=== PATIENT | female | born 1930 | race Caucasian/White ===

== ENCOUNTER 2017-08-11 10:01 | Emergency (ER) | payer MEDICARE, BC ==
[~2017-08-11] VITALS: Ht 165.1 cm; Wt 68.0 kg
--- OUTSIDE RECORDS SUMMARY | 2017-08-11 10:04 | XMS REPORT ---
Author Author [facility] Address Unknown Phone Unavailable Care Team Providers Care Hair Weaver Name Role Phone SARAHI MOORE Unavailable Unavailable Problems This patient has no known problems. Allergies, Adverse Reactions, Alerts This patient has no known allergies or adverse reactions. Medications This patient has no known medications. Results Test Description Test Time Test Comments Text Results Atomic Results Result Comments CT BRAIN WO [place] [address] Patient Name: LAUREN GRESHAM MR #: [id number] : 1930 Age/Sex: 86/F Req #: [id number] Adm Physician: Ordered by: SARAHI MOORE MD Report #: [id number] Location: ER Room/Bed: Procedure: [id number] CT/CT BRAIN WO Exam Date: 02/22/17 Exam Time: 2039 REPORT STATUS: Signed EXAMINATION: Head CT without contrast. HISTORY:Status post fall. COMPARISON:MRI brain from 04/21/2010. TECHNIQUE: Multidetector axial images were obtained from the foramen magnum to the vertex without contrast. The images were reconstructed using brain and bone algorithms. Thin section brain images were reformatted into coronal and sagittal planes. Intravenous contrast: None IMAGE QUALITY: Acceptable. FINDINGS: Skull/scalp: No abnormality. Parenchyma: Nonspecific few, scattered supratentorial white matter patchy hypodensity are likely related to small vessel ischemic changes. No acute hemorrhage, mass or acute major vascular territorial infarct. Arteries: Atherosclerotic calcification in bilateral carotid siphon. Dural sinuses: No abnormal density suggestive of thrombosis. Ventricles: Mild compensated dilatation due to volume loss. No hydrocephalus. Extra-axial spaces: Unchanged posterior fossa, retrocerebellar cystic lesion with regional mass effect represents an arachnoid cyst. Brain volume: Moderate generalized age-related cerebral volume loss. Craniocervical junction: No mass, Chiari malformation, or basilar invagination. Sella: No mass. Paranasal/mastoid sinuses: Imaged portions unremarkable. IMPRESSION: No acute intracranial abnormality. Chronic findings: 1. Mild supratentorial white matter microvascular ischemic changes. 2. Moderate generalized age-related cerebral volume loss. Signed by: Dr. Sofia Flores M.D. on 02/22/2017 9:16 PM Dictated By: SOFIA FLORES MD 15 Transcribed By: SARITHA on 02/22/172115 COPY TO: SARAHI MOORE MD WRIST COMPLETE RIGHT [place] [address] Patient Name: LAUREN GRESHAM MR #: [id number] : 1930 Age/Sex: 86/F Req #: [id number] Adm Physician: Ordered by: SARAHI MOORE MD Report #: [id number] Location: Room/Bed: Procedure: [id number] DX/WRIST COMPLETE RIGHT Exam Date: 02/22/17 Exam Time: 2039 REPORT STATUS: Signed WRIST COMPLETE RIGHT Comparison: None Clinical history: Status post fall with pain Findings: Transverse fracture of the radial metaphysis with possible intra- articular extension and dorsal angulation. Bone fragment/mineralization seen along ventral radial aspect. There is also widening of the scapholunate interval, 5 to 6 mm, with triangular appearance of the lunate. Severe triscaphe degenerative changes. Impression: Suboptimal positioning and portable views, in particularly the lateral. Recommend nonportable views when able. 1. Angulated, possibly intra-articular, fracture of the distal radial metaphysis. 2. Widening of the scapholunate interval. 3. Findings suggesting lunate/perilunate dislocation. Signed by: Dr Carmen Ferraro MD on 02/22/2017 9:27 PM Dictated By: CARMEN FERRARO MD 26 Transcribed By: SARITHA on 02/22 COPY TO: SARAHI MOORE MD
[2017-08-11 11:12] VITALS: BP 128/62
== END 2017-08-11 11:25 | disposition home or self-care (01) ==
LOC: ER 10:01
DX: Z76.0 Encounter for issue of repeat prescription (principal)
CPT/HCPCS: 99283

== ENCOUNTER 2017-10-25 11:01 | Emergency (ER) | payer MEDICARE, BC ==
[~2017-10-25] VITALS: Ht 165.1 cm; Wt 68.0 kg
--- OUTSIDE RECORDS SUMMARY | 2017-10-25 11:04 | XMS REPORT | Continuity of Care Document ---
Author Author [facility] Organization [facility] Address [address] [place] [address] Phone Unavailable Care Team Providers Care Certification Engineer Name Role Phone NONSTAFF PCP Unavailable Insurance Providers Guarantor Carmelita Myrick Address [address] [place] [address] Email [email or web address] [facility] Policy Number [id number] Subscriber's Name Carmelita Myrick Lisa Relationship 18 Self / Same As Patient Group Number [id number] Group Name [employer] Effective Date 14 Payer Medicare A & B Policy Number [id number] Subscriber's Name Carmelita Myrick Relationship 18 Self / Same As Patient Group Number [id number] Group Name RETIRED Effective Date 93 Advance Directives Directive Response Recorded Date/Time Does the patient have an advance directive? Yes 08/11/17 10:58am If yes, is advance directive on file with [facility]? No 08/25/07 7:54am If not on file with [facility] will patient provide a copy? Yes 08/11/17 10:58am Do you have a Directive to Physician? Yes 08/11/17 10:58am Do you have a Medical Power of Eap Specialist? Yes 08/11/17 10:58am Do you have an out of hospital Do Not Resuscitate Order? No 08/11/17 10:58am Do you have any special needs we should be aware of? No 08/11/17 10:58am Do you have a support person here with you today? Yes 08/11/17 10:58am Did patient receive Notice of Privacy Practices? Yes 08/11/17 10:58am Did patient receive patient rights and responsibilities? Yes 08/11/17 10:58am Problems No problem information available. Medications No medication information available. Social History Smoking Status Start Date Stop Date Never Smoker Hospital Discharge Instructions No hospital discharge instruction information available. Plan of Care Discharge Date 08/11/17 11:25am Disposition HOME, SELF-CARE Condition at Discharge Stable Instructions/Education Provided Medication Safety Prescriptions See Medication Section Referrals Dane Montemayor MD Order Date: Call for an appointment Additional Instructions/Education DC Instructions: Call for follow up appointment to see your Eye doctor as planned. Continue to take your eye medication as prescribed. YOu have more than half of the medication remaining in your bottle. As discussed at the bedside, drink fluids, rest and return to the ER for any fever, shortness of breath, chest pain, trouble handling your oral secreations or any new concerns. Functional Status No functional status information available. Allergies, Adverse Reactions, Alerts Allergen Type Severity Reaction Status Last Updated Penicillin Allergy Mild RASH,WHELPS Active 10/18/09 Sulfa (Sulfonamide Antibiotics) Allergy Mild HEADACHE Active 10/18/09 Propoxyphene Allergy Mild INSOMNIA Active 10/18/09 Streptomycin Allergy Mild RASH,WHELPS Active 10/18/09 Immunizations No immunization information available. Vital Signs Acute Vital Signs Vital Response Date/Time Pulse Pulse Rate (adult) 65 bpm (60 - 90) 08/11/2017 11:12am Respiratory Rate 17 bpm (12 - 24) 08/11/2017 11:12am Blood Pressure 128/62 mm Hg 08/11/2017 11:12am Height 5 ft 5 in 08/11/2017 10:05am Weight 150 lb 08/11/2017 10:05am Body Mass Index 25.0 kg/m^2 08/11/2017 10:05am Results No relevant diagnostic test, laboratory data and/or discharge summary information available. Procedures Procedure Status Date Provider(s) APPLY FOREARM SPLINT Completed 02/22/17 SARAHI MOORE MD Computed tomography of brain without radiopaque contrast Active 02/22/17 SARAHI MOORE MD Encounters Encounter Location Arrival/Admit Date Discharge/Depart Date Attending Provider Departed Emergency Room [facility] 08/11/17 10:01am 08/11 11:25am MARGARET GARVIN MD Departed Emergency Room [facility] 02/22/17 8:22pm 10:32pm SARAHI MOORE MD
[2017-10-25] MEDS ORDERED: ALBUTEROL/IPRATROPIUM 3 ML NEB NEB ONE (11:15)
[2017-10-25 12:04] LABS: BASOPHILS # (AUTO) 0.1 (0.0-0.1); BASOPHILS % 1.2 % (0.0-1.0); EOSINOPHILS # (AUTO) 0.8 (0.0-0.4); EOSINOPHILS % 7.2 % (0.0-6.0); HEMATOCRIT 32.3 % (34.2-44.1); HEMOGLOBIN 9.9 g/dL (12.0-16.0); LYMPHOCYTES # (AUTO) 1.7 (1.0-3.2); LYMPHOCYTES % 16.3 % (18.0-39.1); MEAN CORPUSCULAR HGB CONC 30.7 g/dL (31-35); MEAN CORPUSCULAR VOLUME 91.5 fL (81-99); MONOCYTES # (AUTO) 0.8 (0.2-0.8); MONOCYTES % 7.8 % (4.4-11.3); NEUTROPHILS # (AUTO) 7.1 (2.1-6.9); NEUTROPHILS % 66.9 % (38.7-80.0); PLATELET COUNT 314 x10e3/uL (140-360); RED BLOOD COUNT 3.53 x10e6/uL (3.6-5.1); RED CELL DISTRIBUTION WIDTH 14.7 % (11.7-14.4)
[2017-10-25 12:17] LABS: INR 1.02; PARTIAL THROMBOPLASTIN TIME 31.5 seconds (23.8-35.5); PROTHROMBIN TIME 12.6 seconds (11.9-14.5)
--- NOTE | 2017-10-25 12:25 | Diagnostic Imaging Report ---
PROCEDURE: A single AP view of the chest. COMPARISON: 05/09/08 INDICATIONS: COUGH, SHORTNESS OF BREATH FINDINGS: Lines/tubes: None. Lungs: Unchanged elevated right hemidiaphragm. Central peribronchovascular thickening/cuffing and vascular congestion. Bibasilar subsegmental atelectasis. Pleura: There is no pleural effusion or pneumothorax. Heart and mediastinum: The heart and the mediastinum are unremarkable. Aorta is calcified and tortuous. Bones: No acute bony abnormality. IMPRESSION: Unchanged elevated right hemidiaphragm. Central peribronchovascular thickening/cuffing and vascular congestion. Underlying infiltrate in the perihilar regions cannot be excluded. Bibasilar subsegmental atelectasis. Dictated by: Nilo Salazar M.D. on 10/25/2017 at 12:27 Electronically approved by: Nlio Salazar M.D. on 10/25/2017 at 12:27
[2017-10-25 12:37] LABS: ALANINE AMINOTRANSFERASE 9 IU/L (0-55); ALBUMIN 3.2 g/dL (3.5-5.0); ALKALINE PHOSPHATASE 105 IU/L (40-150); ANION GAP 15.1 mmol/L (8-16); BLOOD UREA NITROGEN 26 mg/dL (7-26); BUN/CREATININE RATIO 18 (6-25); CARBON DIOXIDE 27 mmol/L (22-29); CHLORIDE 100 mmol/L (98-107); CREATINE KINASE 59 IU/L (29-168); CREATININE, SERUM 1.47 mg/dL (0.57-1.11); EST GLOMERULAR FILTRATION RATE 33 ML/MIN (60-); GLUCOSE 82 mg/dL (74-118); POTASSIUM 5.1 mmol/L (3.5-5.1); SODIUM 137 mmol/L (136-145)
[2017-10-25] MEDS ORDERED: METHYLPREDNISOLONE SOD SUCC 125 MG/2ML VIAL IV ONE (13:15)
[2017-10-25 13:42] VITALS: BP 154/71
== END 2017-10-25 13:35 | disposition home or self-care (01) ==
LOC: ER 11:01
DX: R05 Cough (principal); R06.00 Dyspnea, unspecified; I10 Essential (primary) hypertension; Z99.81 Dependence on supplemental oxygen
CPT/HCPCS: 36415; 71045; 80053; 82550; 82553; 83880; 84484; 85025; 85610; 85730; 87040; 93005; 99284; J2930

== ENCOUNTER 2018-01-15 21:18 | Inpatient (IN) | payer MEDICARE, BC ==
[~2018-01-15] VITALS: Ht 165.1 cm; Wt 68.0 kg
[2018-01-15] MEDS: ALBUTEROL SULF 0.083% NEB SOLN 3 ML NEB NEB SCH (00:10)
[2018-01-15] MEDS ORDERED: IPRATROPIUM BROMIDE 0.02% 2.5 ML NEB NEB STA (21:23)
[2018-01-15] MEDS ORDERED: LEVALBUTEROL HCL SOLN NEBU 0.63 MG/3 ML NEB INH STA (21:23)
[2018-01-15 21:41] LABS: BASOPHILS # (AUTO) 0.1 (0.0-0.1); EOSINOPHILS # (AUTO) 0.5 (0.0-0.4); EOSINOPHILS % 5.5 % (0.0-6.0); HEMATOCRIT 31.3 % (34.2-44.1); HEMOGLOBIN 9.4 g/dL (12.0-16.0); LYMPHOCYTES # (AUTO) 2.1 (1.0-3.2); LYMPHOCYTES % 25.5 % (18.0-39.1); MEAN CORPUSCULAR HEMOGLOBIN 28.3 pg (28-32); MEAN CORPUSCULAR VOLUME 94.3 fL (81-99); MONOCYTES # (AUTO) 0.8 (0.2-0.8); MONOCYTES % 9.6 % (4.4-11.3); NEUTROPHILS # (AUTO) 4.8 (2.1-6.9); PLATELET COUNT 330 x10e3/uL (140-360); RED BLOOD COUNT 3.32 x10e6/uL (3.6-5.1); RED CELL DISTRIBUTION WIDTH 14.9 % (11.7-14.4)
[2018-01-15 21:50] LABS: INR 0.97; PROTHROMBIN TIME 12.1 seconds (11.9-14.5)
[2018-01-15 21:51] LABS: PARTIAL THROMBOPLASTIN TIME 28.6 seconds (23.8-35.5)
[2018-01-15 21:52] LABS: CLARITY,URINE CLEAR (CLEAR); COLOR,URINE YELLOW (YELLOW); LEUKOCYTE ESTERASE ,URINE TRACE (NEGATIVE); NITRITE,URINE NEGATIVE (NEGATIVE)
[2018-01-15 21:53] LABS: BILIRUBIN,URINE NEGATIVE (NEGATIVE); KETONES,URINE NEGATIVE (NEGATIVE); PROTEIN,URINE DIPSTICK 1+ (NEGATIVE); URINE UROBILINOGEN 0.2 mg/dL (0.2 - 1)
[2018-01-15] MEDS ORDERED: DIGOXIN125 MCG PO (21:54)
[2018-01-15] MEDS ORDERED: TOPROL XL50 MG PO (21:55)
[2018-01-15] MEDS ORDERED: AMIODARONE HCL200 MG PO (21:55)
--- NOTE | 2018-01-15 21:55 | Diagnostic Imaging Report ---
EXAM: CHEST SINGLE (PORTABLE), AP 1 view INDICATION: Shortness of breath COMPARISON: AP chest 10/25/2017 FINDINGS: LINES/TUBES: None LUNGS: Bibasilar atelectasis PLEURA: No effusions or pneumothorax. HEART AND MEDIASTINUM: Normal size and contour. BONES AND SOFT TISSUES: No acute findings. IMPRESSION: Bibasilar atelectasis. This is increased on the left since prior exam and could represent superimposed pneumonia. Signed by: Dr. Yuliya Dumont M.D. on 01/15/2018 9:52 PM
[2018-01-15 21:56] LABS: ALBUMIN/GLOBULIN RATIO 0.8 (0.8-2.0); ANION GAP 13.9 mmol/L (8-16); CALCIUM 8.9 mg/dL (8.4-10.2); CREATININE, SERUM 2.01 mg/dL (0.57-1.11); MAGNESIUM 1.9 MG/DL (1.3-2.1); POTASSIUM 4.9 mmol/L (3.5-5.1)
[2018-01-15] MEDS ORDERED: VENLAFAXINE HCL75 MG PO (21:56)
[2018-01-15] MEDS ORDERED: GABAPENTIN300 MG PO (21:56)
[2018-01-15] MEDS ORDERED: OMEPRAZOLE40 MG PO (21:57)
[2018-01-15] MEDS ORDERED: SYMBICORT 16010.2 GM INH (22:01)
[2018-01-15] MEDS ORDERED: HYDROCODON-ACE1 EA11 PO (22:01)
[2018-01-15] MEDS ORDERED: PROAIR HFA INH8.5 GM INH (22:01)
[2018-01-15 22:06] LABS: B-TYPE NATRIURETIC PEPTIDE2 92.5 pg/mL (0-100); BACTERIA,URINE MANY /HPF; EPITHELIAL CELLS,URINE FEW /LPF; MUCUS,URINE MANY (RARE); RBC,URINE >50 /HPF (0-5)
[2018-01-15 22:16] LABS: CREATINE KINASE MB 2.5 ng/mL (0-5.0); THYROID STIMULATING HORMONE 6.642 uIU/mL (0.350-4.940)
[2018-01-15] MEDS: CEFTRIAXONE SOD 1 GM VIAL IV SCH (22:29)
[2018-01-15] MEDS: AZITHROMYCIN 500MG/NS 250 ML 250 ML IV SCH (22:29)
[2018-01-15] MEDS ORDERED: METHYLPREDNISOLONE SOD SUCC 125 MG/2ML VIAL IV STA (22:57)
[2018-01-15] MEDS ORDERED: METHYLPREDNISOLONE SOD SUCC 125 MG/2ML VIAL ONE (22:59)
[2018-01-15] MEDS ORDERED: SODIUM CHLORIDE 0.9% 1000ML 1,000 ML IV ONE (23:15)
[2018-01-15 23:36] LABS: ABG HCO3 27 mmol/L (23-28); ABG PCO2 54 mmHg (41-51); ABG PO2 85 mmHg (80-105)
[2018-01-16] VITALS (10 sets, daily range): BP systolic 137–180; BP diastolic 71–107
--- NOTE | 2018-01-16 00:03 | Diagnostic Imaging Report ---
EXAM: CT CHEST WO INDICATION: Shortness of breath, left lateral rib pain COMPARISON: Portal chest x-ray January 15, 2018 TECHNIQUE: Multidetector CT scanning of the chest was performed. Coronal and sagittal multiplanar reformations were obtained. Routine protocol performed. IV Contrast: None CTDIvol has been reviewed. It is below the limits set by the Radiation Protocol Committee (RPC). FINDINGS: LUNGS AND AIRWAYS: The trachea and major bronchi are patent. Mild traction bronchiectasis, likely age-related. Mild bibasilar subsegmental atelectasis. No consolidations or edema. PLEURA: No effusions or pneumothorax. Mild dependent posterior pleural thickening. HEART, MEDIASTINUM, VESSELS: The heart is within normal size limits. Marked calcifications of the thoracic aorta without evidence of an aneurysm. Goiter with substernal left thyroid lobe. UPPER ABDOMEN: No acute findings. Bilateral renal cysts. MUSCULOSKELETAL: * Acute left posterior 10th and 11th rib fractures. * Subacute appearing mild compression fracture of the T12 superior endplate with approximately 20% loss of vertebral body height. Nonspecific right posterior lateral breast nodules measuring approximately 1 cm each. Healing nondisplaced left lateral ninth Rib fracture. There are 3 punctate foci of air around the proximal right clavicle of uncertain clinical significance, may be intravascular associated with a line placement. Partially visualized lumbar spine surgical hardware. IMPRESSION: * Acute left posterior 10th and 11th rib fractures. * Subacute appearing mild compression fracture of the T12 superior endplate with approximately 20% loss of vertebral body height. Bibasilar subsegmental atelectasis. No pneumothorax. Signed by: Dr. Yuliya Dumont M.D. on 01/15/2018 11:59 PM
[2018-01-16] MEDS: IPRATROPIUM BROMIDE 0.02% 2.5 ML NEB NEB SCH ×2 (00:10→07:06)
[2018-01-16] MEDS ORDERED: IPRATROPIUM BROMIDE 0.02% 2.5 ML NEB ONE (00:19)
[2018-01-16] MEDS ORDERED: ALBUTEROL SULF 0.083% NEB SOLN 3 ML NEB ONE (00:19)
[2018-01-16 02:52] LABS: ABG HCO3 30 mmol/L (23-28); ABG PCO2 49 mmHg (41-51); ABG PH 7.38 (7.31-7.41); ABG PO2 83 mmHg (80-105)
[2018-01-16] MEDS: ALBUTEROL SULF 0.083% NEB SOLN 3 ML NEB NEB SCH ×2 (04:20→07:06)
[2018-01-16 05:20] LABS: BASOPHILS # (AUTO) 0.1 (0.0-0.1); BASOPHILS % 0.7 % (0.0-1.0); EOSINOPHILS % 0.3 % (0.0-6.0); HEMATOCRIT 28.1 % (34.2-44.1); HEMOGLOBIN 8.6 g/dL (12.0-16.0); LYMPHOCYTES # (AUTO) 0.6 (1.0-3.2); LYMPHOCYTES % 5.9 % (18.0-39.1); MEAN CORPUSCULAR HEMOGLOBIN 28.4 pg (28-32); MEAN CORPUSCULAR HGB CONC 30.6 g/dL (31-35); MEAN CORPUSCULAR VOLUME 92.7 fL (81-99); MONOCYTES # (AUTO) 0.2 (0.2-0.8); MONOCYTES % 1.8 % (4.4-11.3); NEUTROPHILS # (AUTO) 9.1 (2.1-6.9); NEUTROPHILS % 90.3 % (38.7-80.0); PLATELET COUNT 289 x10e3/uL (140-360); RED BLOOD COUNT 3.03 x10e6/uL (3.6-5.1); RED CELL DISTRIBUTION WIDTH 14.8 % (11.7-14.4)
[2018-01-16 05:45] LABS: ALBUMIN 2.6 g/dL (3.5-5.0); ALBUMIN/GLOBULIN RATIO 0.8 (0.8-2.0); ANION GAP 15.1 mmol/L (8-16); CALCIUM 8.5 mg/dL (8.4-10.2); CREATININE, SERUM 1.69 mg/dL (0.57-1.11); POTASSIUM 5.1 mmol/L (3.5-5.1)
--- NOTE | 2018-01-16 06:42 | Diagnostic Imaging Report ---
EXAM: CHEST SINGLE (PORTABLE), AP 1 view INDICATION: Pneumonia COMPARISON: AP view of the chest January 15, 2018 FINDINGS: LINES/TUBES: None LUNGS: Bibasilar atelectasis. PLEURA: No effusions or pneumothorax. HEART AND MEDIASTINUM: Normal size and contour. BONES AND SOFT TISSUES: Nondisplaced left posterior 10th and 11th rib fractures not seen by x-ray. IMPRESSION: Bibasilar atelectasis. Signed by: Dr. Yuliya Dumont M.D. on 01/16/2018 6:39 AM
[2018-01-16] MEDS: AZITHROMYCIN 500MG/NS 250 ML 250 ML IV SCH (09:11)
[2018-01-16] MEDS ORDERED: DEXTROSE 5%/0.9% SOD CHL 1,000 ML IV SCH (09:45)
[2018-01-16] MEDS ORDERED: ONDANSETRON HCL INJ 2 MG/ML VIAL IV PRN (09:45)
[2018-01-16] MEDS: CEFTRIAXONE SOD 1 GM VIAL IV SCH ×2 (10:25→21:15)
[2018-01-16] MEDS: ALBUTEROL/IPRATROPIUM 3 ML NEB NEB SCH ×2 (11:16→15:36)
--- NOTE | 2018-01-16 11:56 | Consultation ---
DATE OF CONSULTATION: January 16, 2018 PULMONARY CONSULTATION Patient of Dr. Luther, Dr. Stratton. A charming but unfortunate 87-year-old woman with a history of tremors, history of chronic hypoxia, multiple CVAs, multiple falls, apparently fell at home tripping over a love seat. She said she was trembling and lost her balance. She was using her walker. Family thinks she may have tripped over an oxygen cord. She has had 2 CVAs, most recently in May of last year. She has a history of gastroesophageal reflux, history of peripheral neuropathy, hypertension, intermittent atrial fibrillation, coronary disease. Smoked less than a pack a day for 2 years. Quit over 40 years ago according to the patient. She has had back surgery, bladder surgery, hysterectomy, hernia surgery, , T and A, and appendectomy. ALLERGIES: DARVON, SULFA, PENICILLIN, STREPTOMYCIN. MEDICATIONS: Have included amiodarone, Zocor, Neurontin, losartan, hydrochlorothiazide, Prilosec, and B12. She has been offered a Watchman procedure, but apparently refused. According to nursing, she is a limited chemical code status. PHYSICAL EXAMINATION GENERAL: This is a well-developed white female looking her stated age in no acute distress. VITALS: Temperature 98, pulse 86 and regular, blood pressure 151/80, respirations 18. HEENT: Head is normocephalic and atraumatic. NECK: Trachea midline. LUNGS: Bilateral rhonchi. HEART: Regular rhythm. ABDOMEN: Nontender. EXTREMITIES: Nonedematous. CT reveals 3 rib fractures, 2 acute on the left and pain on the left. Mild compression fracture of T12. There is atelectasis as well as pneumonia per Dr. Mullen. PLAN: Mobilization. Prophylactic Lovenox and incentive spirometry. Chest physiotherapy, bronchodilators. Currently, on empiric antibiotic therapy. Respect DNR status. Continue bronchodilators. The patient may require more supervision at home if possible. She has qualified for supplemental oxygen. Chronicity of the elevated diaphragm is unknown. Request old records from [facility]. Thank you for this kind referral. Job#: [id number] RENEA
[2018-01-16] MEDS: GUAIFENESIN 600 MG TAB PO SCH ×3 (12:29→23:15)
[2018-01-16] MEDS ORDERED: METHYLPREDNISOLONE SOD SUCC 40 MG/ML VIAL IV SCH (14:00)
[2018-01-16] MEDS: METHYLPREDNISOLONE SOD SUCC 40 MG/ML VIAL IV SCH ×2 (14:20→21:00)
[2018-01-16] MEDS: CLONIDINE HCL 0.1 MG TAB PO PRN (16:05)
[2018-01-16] MEDS: HYDRALAZINE HCL 20 MG/ML VIAL IV PRN (16:05)
[2018-01-16] MEDS: FAMOTIDINE 20 MG TAB PO SCH (16:40)
[2018-01-16] MEDS: DOCUSATE SODIUM 100 MG CAP PO SCH (17:07)
[2018-01-16] MEDS: GABAPENTIN 300 MG CAP PO SCH (17:07)
[2018-01-16] MEDS: POLYETHYLENE GLYCOL 3350 17 GM PACK PO SCH (17:07)
[2018-01-16] MEDS: ENOXAPARIN SOD INJ 40 MG/0.4 ML SYR SC SCH (17:07)
[2018-01-16] MEDS: AMIODARONE HCL 200 MG TAB PO SCH (19:09)
[2018-01-16] MEDS: DIGOXIN 0.125 MG TAB PO SCH (19:10)
[2018-01-16] MEDS: METOPROLOL SUCCINATE 50 MG TAB XL PO SCH (19:10)
[2018-01-16] MEDS: LEVALBUTEROL HCL SOLN NEBU 0.63 MG/3 ML NEB INH SCH ×2 (19:20→22:40)
[2018-01-16] MEDS: ACETAMINOPHEN 325 MG TAB PO PRN (21:15)
[2018-01-17] VITALS (8 sets, daily range): BP systolic 147–169; BP diastolic 78–99
[2018-01-17] MEDS: ACETAMINOPHEN 325 MG TAB PO PRN ×2 (03:03→15:33)
[2018-01-17] MEDS: LEVALBUTEROL HCL SOLN NEBU 0.63 MG/3 ML NEB INH SCH ×6 (03:20→22:55)
[2018-01-17] MEDS: HYDRALAZINE HCL 20 MG/ML VIAL IV PRN (04:23)
[2018-01-17 04:51] LABS: BASOPHILS % 0.1 % (0.0-1.0); HEMATOCRIT 25.8 % (34.2-44.1); LYMPHOCYTES % 8.6 % (18.0-39.1); MEAN CORPUSCULAR HEMOGLOBIN 28.3 pg (28-32); MEAN CORPUSCULAR VOLUME 91.2 fL (81-99); MONOCYTES # (AUTO) 0.5 (0.2-0.8); MONOCYTES % 4.2 % (4.4-11.3); NEUTROPHILS # (AUTO) 9.6 (2.1-6.9); NEUTROPHILS % 86.6 % (38.7-80.0); PLATELET COUNT 282 x10e3/uL (140-360); RED BLOOD COUNT 2.83 x10e6/uL (3.6-5.1)
[2018-01-17 05:27] LABS: ANION GAP 13.8 mmol/L (8-16); CALCIUM 8.8 mg/dL (8.4-10.2); CREATININE, SERUM 1.44 mg/dL (0.57-1.11); MAGNESIUM 1.7 MG/DL (1.3-2.1); POTASSIUM 4.8 mmol/L (3.5-5.1)
[2018-01-17 05:32] LABS: FERRITIN 151.54 ng/mL (4.63-204.00)
[2018-01-17] MEDS: METHYLPREDNISOLONE SOD SUCC 40 MG/ML VIAL IV SCH ×2 (06:00→17:03)
[2018-01-17] MEDS: LEVOTHYROXINE SODIUM 50 MCG TAB PO SCH (06:00)
[2018-01-17] MEDS: GUAIFENESIN 600 MG TAB PO SCH ×3 (06:00→17:33)
[2018-01-17 06:15] LABS: FOLATE 10.7 ng/mL (7.0-15.4)
--- NOTE | 2018-01-17 06:50 | Diagnostic Imaging Report ---
EXAM: CHEST SINGLE (PORTABLE), AP 1 view INDICATION: Atelectasis COMPARISON: AP view of the chest January 16, 2018 FINDINGS: LINES/TUBES: None LUNGS: Stable bibasilar atelectasis. PLEURA: No effusions or pneumothorax. HEART AND MEDIASTINUM: Stable appearance. BONES AND SOFT TISSUES: No acute findings. IMPRESSION: No interval change. Signed by: Dr. Yuliya Dumont M.D. on 01/17/2018 6:47 AM
[2018-01-17] MEDS ORDERED: FUROSEMIDE INJ 10 MG/ML 2 ML VIAL IV NR (07:30)
[2018-01-17] MEDS ORDERED: BISACODYL 5 MG TAB EC PO NR (07:45)
[2018-01-17] MEDS: AZITHROMYCIN 500MG/NS 250 ML 250 ML IV SCH (08:00)
[2018-01-17] MEDS: AMIODARONE HCL 200 MG TAB PO SCH (08:24)
[2018-01-17] MEDS: DOCUSATE SODIUM 100 MG CAP PO SCH ×2 (08:24→15:42)
[2018-01-17] MEDS: FAMOTIDINE 20 MG TAB PO SCH ×2 (08:24→16:01)
[2018-01-17] MEDS: VENLAFAXINE HCL 75 MG TAB PO SCH (08:24)
[2018-01-17] MEDS: PANTOPRAZOLE SOD 40 MG TABEC PO SCH (08:24)
[2018-01-17] MEDS: AMLODIPINE BESYLATE 10 MG TAB PO SCH (08:25)
[2018-01-17] MEDS: GABAPENTIN 300 MG CAP PO SCH ×2 (08:25→15:33)
[2018-01-17] MEDS: POLYETHYLENE GLYCOL 3350 17 GM PACK PO SCH ×2 (08:25→15:42)
[2018-01-17] MEDS: DIGOXIN 0.125 MG TAB PO SCH (08:25)
[2018-01-17] MEDS: METOPROLOL SUCCINATE 50 MG TAB XL PO SCH (08:26)
[2018-01-17] MEDS ORDERED: DIGOXIN 0.125 MG TAB PO SCH (09:00)
[2018-01-17] MEDS ORDERED: METOPROLOL SUCCINATE 50 MG TAB XL PO SCH (09:00)
[2018-01-17] MEDS ORDERED: AMIODARONE HCL 200 MG TAB PO SCH (09:00)
[2018-01-17] MEDS: CEFTRIAXONE SOD 1 GM VIAL IV SCH ×2 (09:35→22:15)
[2018-01-17] MEDS: IPRATROPIUM BROMIDE 0.02% 2.5 ML NEB NEB SCH ×4 (11:50→22:55)
[2018-01-17] MEDS: ENOXAPARIN SOD INJ 40 MG/0.4 ML SYR SC SCH (16:01)
[2018-01-17] MEDS: HYDROCODONE/APAP 5MG-325MG TAB PO PRN (16:02)
[2018-01-17] MEDS: MELATONIN 3 MG TAB PO PRN (23:30)
[2018-01-18] VITALS (7 sets, daily range): BP systolic 115–189; BP diastolic 75–97
[2018-01-18] MEDS ORDERED: ALPRAZOLAM 0.25 MG TAB PO PRN (00:30)
[2018-01-18] MEDS: LEVALBUTEROL HCL SOLN NEBU 0.63 MG/3 ML NEB INH SCH ×6 (02:57→23:20)
[2018-01-18] MEDS: IPRATROPIUM BROMIDE 0.02% 2.5 ML NEB NEB SCH ×6 (02:57→23:20)
[2018-01-18 05:20] LABS: BASOPHILS % 0.2 % (0.0-1.0); EOSINOPHILS % 0.1 % (0.0-6.0); LYMPHOCYTES # (AUTO) 1.3 (1.0-3.2); LYMPHOCYTES % 15.3 % (18.0-39.1); MEAN CORPUSCULAR HEMOGLOBIN 28.2 pg (28-32); MEAN CORPUSCULAR VOLUME 90.9 fL (81-99); MONOCYTES # (AUTO) 0.7 (0.2-0.8); MONOCYTES % 7.8 % (4.4-11.3); NEUTROPHILS # (AUTO) 6.5 (2.1-6.9); NEUTROPHILS % 75.9 % (38.7-80.0); PLATELET COUNT 322 x10e3/uL (140-360); RED BLOOD COUNT 3.19 x10e6/uL (3.6-5.1); RED CELL DISTRIBUTION WIDTH 14.8 % (11.7-14.4)
[2018-01-18] MEDS: GUAIFENESIN 600 MG TAB PO SCH ×4 (05:33→17:01)
[2018-01-18] MEDS: LEVOTHYROXINE SODIUM 50 MCG TAB PO SCH (05:33)
[2018-01-18 05:50] LABS: ANION GAP 13.4 mmol/L (8-16); CALCIUM 8.8 mg/dL (8.4-10.2); CREATININE, SERUM 1.77 mg/dL (0.57-1.11); MAGNESIUM 1.7 MG/DL (1.3-2.1); POTASSIUM 4.4 mmol/L (3.5-5.1)
[2018-01-18] MEDS: METHYLPREDNISOLONE SOD SUCC 40 MG/ML VIAL IV SCH ×2 (06:00→17:01)
[2018-01-18] MEDS: FAMOTIDINE 20 MG TAB PO SCH ×2 (08:30→17:00)
[2018-01-18] MEDS: PANTOPRAZOLE SOD 40 MG TABEC PO SCH (08:30)
[2018-01-18] MEDS: VENLAFAXINE HCL 75 MG TAB PO SCH (08:50)
[2018-01-18] MEDS: AMIODARONE HCL 200 MG TAB PO SCH (08:50)
[2018-01-18] MEDS: DOCUSATE SODIUM 100 MG CAP PO SCH ×2 (08:50→17:00)
[2018-01-18] MEDS: AZITHROMYCIN 250 MG TAB PO SCH (08:51)
[2018-01-18] MEDS: DIGOXIN 0.125 MG TAB PO SCH (08:51)
[2018-01-18] MEDS: GABAPENTIN 300 MG CAP PO SCH ×2 (08:51→17:00)
[2018-01-18] MEDS: METOPROLOL SUCCINATE 50 MG TAB XL PO SCH (08:51)
[2018-01-18] MEDS: POLYETHYLENE GLYCOL 3350 17 GM PACK PO SCH ×2 (08:51→17:00)
[2018-01-18] MEDS: AMLODIPINE BESYLATE 10 MG TAB PO SCH (08:51)
[2018-01-18] MEDS ORDERED: MINERAL OIL 132 ML BTL PR NR (09:45)
[2018-01-18] MEDS: CEFTRIAXONE SOD 1 GM VIAL IV SCH ×2 (10:00→22:08)
[2018-01-18] MEDS: HYDROCODONE/APAP 5MG-325MG TAB PO PRN ×2 (10:30→18:37)
[2018-01-18] MEDS ORDERED: CITRATE OF MAGNESIA 300ML BOTTLE PO NR (16:00)
[2018-01-18] MEDS: ENOXAPARIN SOD INJ 40 MG/0.4 ML SYR SC SCH (17:00)
[2018-01-18] MEDS: MELATONIN 3 MG TAB PO PRN (22:09)
[2018-01-19] VITALS (8 sets, daily range): BP systolic 139–172; BP diastolic 72–94
[2018-01-19] MEDS: IPRATROPIUM BROMIDE 0.02% 2.5 ML NEB NEB SCH ×6 (02:50→23:25)
[2018-01-19] MEDS: LEVALBUTEROL HCL SOLN NEBU 0.63 MG/3 ML NEB INH SCH ×6 (02:50→23:25)
[2018-01-19 05:11] LABS: BASOPHILS % 0.2 % (0.0-1.0); HEMATOCRIT 30.4 % (34.2-44.1); HEMOGLOBIN 9.3 g/dL (12.0-16.0); LYMPHOCYTES # (AUTO) 1.1 (1.0-3.2); MEAN CORPUSCULAR HEMOGLOBIN 28.4 pg (28-32); MEAN CORPUSCULAR HGB CONC 30.6 g/dL (31-35); MONOCYTES # (AUTO) 0.3 (0.2-0.8); MONOCYTES % 3.9 % (4.4-11.3); NEUTROPHILS % 82.3 % (38.7-80.0); PLATELET COUNT 320 x10e3/uL (140-360); RED BLOOD COUNT 3.27 x10e6/uL (3.6-5.1); RED CELL DISTRIBUTION WIDTH 14.8 % (11.7-14.4)
[2018-01-19 05:36] LABS: CALCIUM 9.1 mg/dL (8.4-10.2); CREATININE, SERUM 1.61 mg/dL (0.57-1.11)
[2018-01-19] MEDS: LEVOTHYROXINE SODIUM 50 MCG TAB PO SCH (06:00)
[2018-01-19] MEDS: GUAIFENESIN 600 MG TAB PO SCH ×5 (06:00→23:07)
[2018-01-19] MEDS: METHYLPREDNISOLONE SOD SUCC 40 MG/ML VIAL IV SCH ×2 (06:02→17:00)
[2018-01-19] MEDS: PANTOPRAZOLE SOD 40 MG TABEC PO SCH (08:30)
[2018-01-19] MEDS: FAMOTIDINE 20 MG TAB PO SCH ×2 (08:30→17:00)
[2018-01-19] MEDS: DOCUSATE SODIUM 100 MG CAP PO SCH (08:40)
[2018-01-19] MEDS: AMIODARONE HCL 200 MG TAB PO SCH (08:40)
[2018-01-19] MEDS: VENLAFAXINE HCL 75 MG TAB PO SCH (08:40)
[2018-01-19] MEDS: AZITHROMYCIN 250 MG TAB PO SCH (08:41)
[2018-01-19] MEDS: METOPROLOL SUCCINATE 50 MG TAB XL PO SCH (08:41)
[2018-01-19] MEDS: GABAPENTIN 300 MG CAP PO SCH ×2 (08:41→17:00)
[2018-01-19] MEDS: AMLODIPINE BESYLATE 10 MG TAB PO SCH (08:41)
[2018-01-19] MEDS: DIGOXIN 0.125 MG TAB PO SCH (08:41)
[2018-01-19] MEDS: POLYETHYLENE GLYCOL 3350 17 GM PACK PO SCH (09:00)
[2018-01-19] MEDS: CEFTRIAXONE SOD 1 GM VIAL IV SCH (09:38)
[2018-01-19] MEDS ORDERED: POLYETHYLENE GLYCOL 3350 17 GM PACK PO PRN (11:00)
[2018-01-19] MEDS ORDERED: DOCUSATE SODIUM 100 MG CAP PO PRN (11:00)
[2018-01-19] MEDS: HYDROCODONE/APAP 5MG-325MG TAB PO PRN (11:53)
[2018-01-19] MEDS ORDERED: CEFEPIME HCL 1 GM VIAL IV SCH (15:45)
--- NOTE | 2018-01-19 16:25 | Consultation ---
DATE OF CONSULTATION: January 19, 2018 REASON FOR CONSULTATION: Pneumonia. HISTORY OF PRESENT ILLNESS: This is an 87-year-old white female with history of tremors, chronic hypoxemia, multiple CVA and multiple falls. She fell at home over her feet and apparently had injury to the left side of her chest. The patient started to have pain. The patient came here because she was having coughing and not feeling well. The patient was diagnosed with pneumonia and started on antibiotic, Rocephin and Azithromycin. The patient continued to have coughing at the present time. Infectious disease was consulted. She underwent a CAT scan which showed 3 ribs fractured, 2 acute on the left. The patient also had compression fracture of T12. There is atelectasis as well as possibility of infiltrates. When I saw the patient, she is complaining of coughing still and not feeling any better. The patient continued to have cough, which is nonproductive and not feeling well. Her urine did grow E. coli of interest. I reviewed all of her laboratory data. Discussed the case with the patient and discussed the case at length with Dr. Ray and the primary care. PHYSICAL EXAMINATION: GENERAL: Alert, and does not seem to be in any acute distress. VITAL SIGNS: Stable, currently afebrile. HEENT: Not icteric. Normocephalic. NECK: Supple. CHEST: A few rhonchi. HEART: S1 and S2, no murmur. ABDOMEN: Soft. Bowel sounds present. No tenderness. EXTREMITIES: No edema. IMPRESSION: Persistent cough. It think she just has weak cough because of the fracture drips, not certain if she has pneumonia. The patient certainly could develop pneumonia in the future because she has a weak cough. RECOMMENDATIONS: I would suggest to change her antibiotic to cefepime 1 gram q.24 h. to finish 14 days for the UTI. She will probably benefit from PT and OT and nutritional support. She also has a little bit of failure, fluid overload. I do not think she has pneumonia. I think mainly she just has a weak cough and fractured ribs for quite some time to heal, but I do encourage her to have deep incentive spirometry in the meantime. Will follow. Job#: [id number]
[2018-01-19] MEDS: ENOXAPARIN SOD INJ 40 MG/0.4 ML SYR SC SCH (17:00)
[2018-01-19] MEDS: MELATONIN 3 MG TAB PO PRN (21:42)
[2018-01-19] MEDS: CLONIDINE HCL 0.1 MG TAB PO PRN (23:07)
[2018-01-20] VITALS (8 sets, daily range): BP systolic 130–178; BP diastolic 66–83
[2018-01-20] MEDS: LEVALBUTEROL HCL SOLN NEBU 0.63 MG/3 ML NEB INH SCH ×6 (02:15→23:00)
[2018-01-20] MEDS: IPRATROPIUM BROMIDE 0.02% 2.5 ML NEB NEB SCH ×6 (02:15→23:00)
[2018-01-20 04:46] LABS: BASOPHILS % 0.1 % (0.0-1.0); EOSINOPHILS % 0.1 % (0.0-6.0); HEMOGLOBIN 9.2 g/dL (12.0-16.0); LYMPHOCYTES # (AUTO) 1.5 (1.0-3.2); LYMPHOCYTES % 19.3 % (18.0-39.1); MEAN CORPUSCULAR HEMOGLOBIN 28.3 pg (28-32); MEAN CORPUSCULAR HGB CONC 30.7 g/dL (31-35); MEAN CORPUSCULAR VOLUME 92.3 fL (81-99); MONOCYTES # (AUTO) 0.7 (0.2-0.8); MONOCYTES % 8.5 % (4.4-11.3); NEUTROPHILS # (AUTO) 5.5 (2.1-6.9); NEUTROPHILS % 71.4 % (38.7-80.0); PLATELET COUNT 305 x10e3/uL (140-360); RED BLOOD COUNT 3.25 x10e6/uL (3.6-5.1); RED CELL DISTRIBUTION WIDTH 14.6 % (11.7-14.4)
[2018-01-20 05:12] LABS: ANION GAP 13.4 mmol/L (8-16); CALCIUM 8.7 mg/dL (8.4-10.2); CREATININE, SERUM 1.5 mg/dL (0.57-1.11); MAGNESIUM 1.9 MG/DL (1.3-2.1); POTASSIUM 4.4 mmol/L (3.5-5.1)
[2018-01-20] MEDS: GUAIFENESIN 600 MG TAB PO SCH ×4 (06:00→23:20)
[2018-01-20] MEDS: LEVOTHYROXINE SODIUM 50 MCG TAB PO SCH (06:00)
[2018-01-20] MEDS: METHYLPREDNISOLONE SOD SUCC 40 MG/ML VIAL IV SCH ×2 (06:06→17:47)
[2018-01-20] MEDS: AMIODARONE HCL 200 MG TAB PO SCH (09:30)
[2018-01-20] MEDS: METOPROLOL SUCCINATE 50 MG TAB XL PO SCH (09:30)
[2018-01-20] MEDS: VENLAFAXINE HCL 75 MG TAB PO SCH (09:30)
[2018-01-20] MEDS: DIGOXIN 0.125 MG TAB PO SCH (09:30)
[2018-01-20] MEDS: PANTOPRAZOLE SOD 40 MG TABEC PO SCH (09:30)
[2018-01-20] MEDS: FAMOTIDINE 20 MG TAB PO SCH ×2 (09:30→17:00)
[2018-01-20] MEDS: GABAPENTIN 300 MG CAP PO SCH ×2 (09:30→17:47)
[2018-01-20] MEDS: AMLODIPINE BESYLATE 10 MG TAB PO SCH (09:30)
[2018-01-20] MEDS: HYDROCODONE/APAP 5MG-325MG TAB PO PRN ×2 (10:02→14:11)
[2018-01-20] MEDS: NIFEDIPINE CR 30 MG TAB PO SCH (10:31)
--- NOTE | 2018-01-20 12:00 | Diagnostic Imaging Report ---
PROCEDURE:ABDOMINAL ULTRASOUND COMPARISON:[facility], CT, CT ABDOMEN AND PELVIS WITH CONTRAST, 10/02/2009, 16:44. [facility], CT, CT CHEST WO, 01/15/2018, 23:07. INDICATIONS:Unrelieved pain in leftupper quadrant FINDINGS: Limited exam, due to suboptimal window for ultrasound secondary to limited positioning due to pain. Liver: 16.6 cm. Normal hepatic parenchymal echogenicity. 8.7 x 5.2 x 4.5 cm solid, mildly heterogeneous, hyperechoic mildly wedge-shaped area in anterior aspect of the right hepatic lobe. Main portal vein: 0.5 cm. Hepatopetal flow. Gallbladder: Limited view. No stones or sludge. Common Bile Duct: 0.4 cm. No echogenic filling defect. Sonographic Murguia's sign: Negative Right kidney: 9.5 cm. No echogenic calculi, or hydronephrosis. Increased parenchymal echogenicity. 3.1 x 2.5 x 2.0 cm solid-appearing partially exophytic mass in the superior pole without significant vascularity. 1.3 x 1.0 x 1.4 cm cystic anechoic, partially exophytic lesion in the mid aspect. Left kidney: 10.8 cm. No solid or mass, echogenic calculi, or hydronephrosis. Increased parenchymal echogenicity. 1.6 x 1.2 x 1.5 cm cystic, anechoic, partially exophytic lesion in the mid aspect. 0.8 x 1.0 x 1.0 cm cystic, anechoic, partly exophytic lesion in the inferolateral aspect. Spleen: 9.0 cm. No focal lesions. Pancreas: The visualized portions of the neck are normal. Inferior vena cava: Obscured. Aorta: Ectasia of the distal abdominal aorta, which measures 2.3 cm in diameter. Luminal irregularity, secondary to atherosclerotic disease.. Ascites: None. CONCLUSION: 1. Mild hepatomegaly. 2. 8.7 cm mildly heterogeneous, hyperechoic, somewhat wedge-shaped area in the anterior right hepatic lobe may represent focal fatty infiltration rather than a true mass the are not exam. Although the CT chest dated 01/15/2018 is a noncontrast exam, no definite mass is identified. Recommend contrast enhanced abdominal CT for further evaluation. 3. 3.1 cm solid mass in the superior pole of the right kidney, suspicious for RCC. 4. Bilateral simple appearing renal cysts. 5. Unremarkable spleen. No evidence of surrounding fluid or hemorrhage. Rito Robledo M.D. Dictated by: Rito Robledo M.D. on 01/20/2018 at 12:05 Electronically approved by: Rito Robledo M.D. on 01/20/2018 at 12:05
[2018-01-20] MEDS: ENOXAPARIN SOD INJ 40 MG/0.4 ML SYR SC SCH (17:47)
[2018-01-20] MEDS: CEFEPIME HCL 1 GM VIAL IV SCH (17:47)
[2018-01-20] MEDS: CLONIDINE HCL 0.1 MG TAB PO PRN (19:24)
--- NOTE | 2018-01-20 21:58 | Diagnostic Imaging Report ---
EXAM: CT Abdomen WITHOUT contrast INDICATION: Renal mass/liver mass. Anemia, COPD, pneumonia COMPARISON: None. TECHNIQUE: Abdomen was scanned utilizing a multidetector helical scanner from the lung base to the iliac crest without administration of IV contrast. Absence of intravenous contrast decreases sensitivity for detection of focal lesions and vascular pathology. Coronal and sagittal reformations were obtained. Routine protocol was performed. IV CONTRAST: None. ORAL CONTRAST: None RADIATION DOSE: Total DLP: 176.7 mGy*cm Estimated effective dose: (DLP x 0.015 x size factor) mSv COMPLICATIONS: None FINDINGS: LINES and TUBES: None. LOWER THORAX: There is bibasilar atelectasis. Extensive bilateral carotid disease of the thoracoabdominal aorta and branches including mitral valve annulus. Calcification of the subcarinal lymph nodes HEPATOBILIARY: No focal hepatic lesions. No biliary ductal dilation. GALLBLADDER: No radio-opaque stones or sludge. No wall thickening. SPLEEN: No splenomegaly. Calcified granulomas are present PANCREAS: No focal masses or ductal dilatation. ADRENALS: No adrenal nodules KIDNEYS/URETERS: No hydronephrosis. Lack of IV contrast limits the evaluation of the solid organs, therefore, identification of a renal mass is nearly impossible. There are a few small hypodense and hyperdense cystic lesions No stones. GI TRACT: Large amount of fluid in the colon with air-fluid levels without dilatation suggestive of diarrhea LYMPH NODES: No lymphadenopathy. VESSELS: There is severe atherosclerotic disease in the aorta and major arterial branches. PERITONEUM / RETROPERITONEUM: No free air or fluid. BONES: There are degenerative changes in the lumbar spine. Posterior fusion is status post laminectomy from L2 through L4 SOFT TISSUES: Unremarkable. IMPRESSION: 1. Fluid-filled colon with air-fluid levels without distention may represent enteritis and diarrhea. 2. Extensive atherosclerotic disease of the thoracoabdominal aorta and branches. 3. The kidneys contain several small hypodense and hyperdense cysts, however, the lack of IV contrast limits the evaluation for identification of masses. Follow-up with abdominal MRI is precluded due to large amount of metallic hardware at the upper lumbar spine. Signed by: Dr. Tin Chaparro M.D. on 01/20/2018 9:55 PM
[2018-01-21] VITALS (11 sets, daily range): BP systolic 116–155; BP diastolic 62–89
[2018-01-21] MEDS: IPRATROPIUM BROMIDE 0.02% 2.5 ML NEB NEB SCH ×6 (02:00→23:00)
[2018-01-21] MEDS: LEVALBUTEROL HCL SOLN NEBU 0.63 MG/3 ML NEB INH SCH ×6 (02:00→23:00)
[2018-01-21 05:04] LABS: BASOPHILS % 0.2 % (0.0-1.0); HEMATOCRIT 29.4 % (34.2-44.1); LYMPHOCYTES # (AUTO) 1.5 (1.0-3.2); LYMPHOCYTES % 18.9 % (18.0-39.1); MEAN CORPUSCULAR HGB CONC 30.6 g/dL (31-35); MEAN CORPUSCULAR VOLUME 91.6 fL (81-99); MONOCYTES # (AUTO) 0.6 (0.2-0.8); MONOCYTES % 7.6 % (4.4-11.3); NEUTROPHILS # (AUTO) 5.9 (2.1-6.9); NEUTROPHILS % 72.6 % (38.7-80.0); PLATELET COUNT 313 x10e3/uL (140-360); RED BLOOD COUNT 3.21 x10e6/uL (3.6-5.1); RED CELL DISTRIBUTION WIDTH 14.6 % (11.7-14.4)
[2018-01-21] MEDS: GUAIFENESIN 600 MG TAB PO SCH ×4 (05:19→22:43)
[2018-01-21] MEDS: LEVOTHYROXINE SODIUM 50 MCG TAB PO SCH (05:19)
[2018-01-21] MEDS: METHYLPREDNISOLONE SOD SUCC 40 MG/ML VIAL IV SCH ×2 (05:19→19:25)
[2018-01-21 05:24] LABS: ANION GAP 12.5 mmol/L (8-16); CALCIUM 8.7 mg/dL (8.4-10.2); CREATININE, SERUM 1.53 mg/dL (0.57-1.11); MAGNESIUM 1.8 MG/DL (1.3-2.1); POTASSIUM 4.5 mmol/L (3.5-5.1)
[2018-01-21] MEDS: FAMOTIDINE 20 MG TAB PO SCH ×2 (08:35→16:06)
[2018-01-21] MEDS: PANTOPRAZOLE SOD 40 MG TABEC PO SCH (08:35)
[2018-01-21] MEDS: VENLAFAXINE HCL 75 MG TAB PO SCH (08:36)
[2018-01-21] MEDS: GABAPENTIN 300 MG CAP PO SCH ×2 (08:36→19:23)
[2018-01-21] MEDS: AMIODARONE HCL 200 MG TAB PO SCH (08:36)
[2018-01-21] MEDS: NIFEDIPINE CR 30 MG TAB PO SCH (08:43)
[2018-01-21] MEDS: DIGOXIN 0.125 MG TAB PO SCH (08:43)
[2018-01-21] MEDS: METOPROLOL SUCCINATE 50 MG TAB XL PO SCH (08:44)
[2018-01-21] MEDS: ACETYLCYSTEINE 20% INHAL SOLN 30 ML VIAL INH SCH ×4 (09:15→19:15)
--- NOTE | 2018-01-21 13:29 | Consultation ---
DATE OF CONSULTATION: NEPHROLOGY CONSULTATION REASON FOR CONSULTATION: Acute kidney injury. HPI: This is an 87-year-old female with history of tremors, chronic hypoxemia, multiple CVAs and multiple falls. She came into the ED after having a fall at home and apparently injured the left side of her chest. She is being treated currently for underlying pneumonia while in the hospital. The patient had acute kidney injury on presentation with a creatinine of 2, currently now 1.5. It is presumed to be from underlying prerenal azotemia from dehydration. On October 25, 2017, creatinine was 1.5, and she is currently at her baseline. She denies any [id number] NSAIDs, herbal supplements or anything for pain. She denies any kidney stones, chronic urinary tract infections, or any family history of anyone being on dialysis. The patient was seen and evaluated at bedside on the medical floor, currently doing well with no other complaints. REVIEW OF SYSTEMS: Pertinent positives: Fall, cough, congestion. Pertinent negatives: Denies any chest pain, palpitations, nausea, vomiting, diarrhea, dysuria, hematuria, frequency, urgency, lightheadedness, dizziness, abdominal pain, headache, shortness of breath, cough, congestion, fever, or any other complaints. The rest of the 14-point review of systems have been reviewed with the patient and are negative. ALLERGIES: PENICILLIN, SULFA, PROPOXYPHENE, STREPTOMYCIN. HOME MEDICATIONS: Amiodarone, Zocor, Neurontin, Losartan, hydrochlorothiazide, Prilosec and vitamin B12. PAST MEDICAL HISTORY: Hypertension, hyperlipidemia, CVA, AFib, CAD, anxiety, GERD, bronchitis, neuropathy. SURGICAL HISTORY: She had 2 C-sections, 2 bladder suspensions, back surgeries, hemorrhoidectomy, hysterectomy, appendectomy, tonsillectomy, abdominal hernia repair. FAMILY HISTORY: Hypertension, diabetes. SOCIAL HISTORY: Denies drugs or alcohol. Does not smoke. Lives alone. Good social support. OBJECTIVE VITAL SIGNS: Temperature is 99.1, pulse 76, respiratory rate 18, blood pressure 141/71. LAB FINDINGS: White count 8.1, hemoglobin 9, hematocrit 29, platelets 313. Coagulation: PT 12, INR 0.97, PTT 28.6. Chemistry: Sodium 133, potassium 4.5, chloride 99, bicarb 26, anion gap 12, BUN 35, creatinine 1.53, likely at baseline. Glucose is 91, calcium 8.7, iron saturation 12%. TSH is 6.6. Urinalysis seems to have underlying urinary tract infection. Digoxin level is below therapeutic range. Stool occult was negative for blood. MICROBIOLOGY: Blood cultures negative. Sputum culture negative. Urine culture is positive for E. coli. IMAGING STUDIES: Chest x-ray: Increased bibasilar atelectasis. CT chest: There are some rib fractures on the 10th and 11th on the left side. Subacute-appearing mild compression fracture of T12 superior end plate, approximately 20% loss of vertebral height. There is no evidence of pneumothorax. Abdominal ultrasound: Concerning for 3.1-cm solid mass in the superior pole of the right kidney suspicious for renal cell carcinoma. There is also an 8.7-cm, mildly heterogeneous, hypoechoic, somewhat wedge-shaped area in the inferior right hepatic lobe. This is a concerning left kidney mass for exophilic lesion. CT abdomen: Fluid-filled colon with air fluid level suspension without distention may represent diarrhea. PHYSICAL EXAMINATION GENERAL: Not in acute distress. Alert and oriented times 3. Cooperative on examination. HEENT: Head is normocephalic and atraumatic. Eyes: Pupils are equal and reactive to light bilaterally. The extraocular movements are intact bilaterally. NECK: Supple with good range of motion. THROAT: No evidence of any erythema or exudates in the posterior pharynx. Has poor dentition. PULMONARY: Clear to auscultation bilaterally. No wheezing. No rales. No rhonchi. No crackles appreciated. CARDIOVASCULAR: Positive S1 and S2. No murmurs, rubs or gallops appreciated. ABDOMEN: Soft. Nontender. Nontender to palpation. Bowel sounds present. MUSCULOSKELETAL: Strength is 5/5 throughout. No evidence of any muscle deficits on examination. No weakness appreciated. NEUROLOGICAL: Cranial nerves II-XII are grossly intact. No evidence of any neurological deficit on exam. SKIN: Intact. Warm to touch. Good cap refill. PSYCHIATRIC: Normal affect and mood. EXTREMITIES: No edema. Good range of motion throughout. IMPRESSION 1. Acute kidney injury on chronic kidney disease, stage 3, secondary to prerenal azotemia. 2. 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 3. Fall. 4. Rib fractures. 5. Pneumonia. PLAN: At this time, I will likely need to get an MRI of the abdomen. I will need to discuss this with the radiologist as the patient currently has CKD, stage 3, and I am not sure if I am able to give her some gadolinium, and I am not sure if this would be of any help if it is with gadolinium or not, but I need to discuss this with radiology. I will also discuss this with the primary team as well. She will likely need to see an oncologist as well. Her creatinine is at baseline, and her electrolytes were stable. Will continue with IV antibiotics. I have reviewed the medications. There is no evidence of any nephrotoxic agents. Medications were adjusted accordingly to renal function. We are going to avoid NSAIDs, RAFAELA inhibitors, ARBs. Continue with IV fluids for now. I will continue to follow with the primary team. Thank you so much for this consultation. Will continue to follow with you. Job#: [id number]
[2018-01-21] MEDS: ACETAMINOPHEN 325 MG TAB PO PRN (16:05)
[2018-01-21] MEDS: CEFEPIME HCL 1 GM VIAL IV SCH (19:23)
[2018-01-21] MEDS: ENOXAPARIN SOD INJ 40 MG/0.4 ML SYR SC SCH (19:23)
[2018-01-21] MEDS: HYDROCODONE/APAP 5MG-325MG TAB PO PRN (21:21)
[2018-01-22] VITALS (8 sets, daily range): BP systolic 108–169; BP diastolic 60–74
[2018-01-22] MEDS: ACETYLCYSTEINE 20% INHAL SOLN 30 ML VIAL INH SCH ×4 (01:00→19:15)
[2018-01-22] MEDS: LEVALBUTEROL HCL SOLN NEBU 0.63 MG/3 ML NEB INH SCH ×6 (02:25→23:00)
[2018-01-22] MEDS: IPRATROPIUM BROMIDE 0.02% 2.5 ML NEB NEB SCH ×6 (02:25→23:00)
[2018-01-22 05:17] LABS: BASOPHILS % 0.1 % (0.0-1.0); HEMATOCRIT 32.9 % (34.2-44.1); HEMOGLOBIN 10.1 g/dL (12.0-16.0); LYMPHOCYTES # (AUTO) 1.7 (1.0-3.2); LYMPHOCYTES % 16.7 % (18.0-39.1); MEAN CORPUSCULAR HEMOGLOBIN 28.5 pg (28-32); MEAN CORPUSCULAR HGB CONC 30.7 g/dL (31-35); MEAN CORPUSCULAR VOLUME 92.7 fL (81-99); MONOCYTES # (AUTO) 0.7 (0.2-0.8); NEUTROPHILS # (AUTO) 7.8 (2.1-6.9); NEUTROPHILS % 75.3 % (38.7-80.0); PLATELET COUNT 341 x10e3/uL (140-360); RED BLOOD COUNT 3.55 x10e6/uL (3.6-5.1); RED CELL DISTRIBUTION WIDTH 14.9 % (11.7-14.4)
[2018-01-22] MEDS: METHYLPREDNISOLONE SOD SUCC 40 MG/ML VIAL IV SCH ×2 (05:18→18:09)
[2018-01-22 05:33] LABS: ANION GAP 15.8 mmol/L (8-16); CREATININE, SERUM 1.6 mg/dL (0.57-1.11); MAGNESIUM 2.1 MG/DL (1.3-2.1); POTASSIUM 4.8 mmol/L (3.5-5.1)
[2018-01-22] MEDS: GUAIFENESIN 600 MG TAB PO SCH ×3 (06:42→18:09)
[2018-01-22] MEDS: LEVOTHYROXINE SODIUM 50 MCG TAB PO SCH (06:43)
[2018-01-22] MEDS: FAMOTIDINE 20 MG TAB PO SCH ×2 (07:54→16:49)
[2018-01-22] MEDS: PANTOPRAZOLE SOD 40 MG TABEC PO SCH (07:54)
[2018-01-22] MEDS: VENLAFAXINE HCL 75 MG TAB PO SCH (08:51)
[2018-01-22] MEDS: AMIODARONE HCL 200 MG TAB PO SCH (08:51)
[2018-01-22] MEDS: GABAPENTIN 300 MG CAP PO SCH ×2 (08:51→18:09)
[2018-01-22] MEDS: NIFEDIPINE CR 30 MG TAB PO SCH (09:30)
[2018-01-22] MEDS: METOPROLOL SUCCINATE 50 MG TAB XL PO SCH (09:30)
[2018-01-22] MEDS: DIGOXIN 0.125 MG TAB PO SCH (09:30)
--- NOTE | 2018-01-22 09:51 | Progress Note ---
DATE: January 22, 2018 NEPHROLOGY PROGRESS NOTE SUBJECTIVE: Patient is doing well today with no complaints. The daughter is at bedside, as well as the patient. I discussed the findings of these imaging studies. They do know that there is a renal mass seen on imaging studies. It is concerning for renal cell carcinoma, which oncology has been consulted. They understand and will discuss further management with the oncologist for the next step. I told them that the patient currently has CKD, stage 3, and her creatinine is at baseline roughly around 1.5. They verbalized understanding. OBJECTIVE VITALS: Temperature 99.1, pulse 67, respiratory rate 18, blood pressure 147/74, pulse ox is 100%. She is on 3 L nasal cannula. GENERAL: Not in acute distress. Alert and oriented times 3. Cooperative on examination. On 3 L nasal cannula. HEENT: Head is normocephalic and atraumatic. Eyes: Pupils equal, round and reactive to light bilaterally. Extraocular movements intact bilaterally. NECK: Supple. Good range of motion. Throat with no evidence of any erythema or exudates in the posterior pharynx. Has poor dentition. PULMONARY: Clear to auscultation bilaterally. No wheezing. No rales. No rhonchi. No crackles appreciated. CARDIOVASCULAR: Positive S1 and S2. No murmurs, rubs or gallops appreciated. ABDOMEN: Soft, nondistended and nontender to palpation. Bowel sounds present. MUSCULOSKELETAL: Strength is 5/5 throughout. No evidence of any muscle deficit on examination. NEUROLOGICAL: Cranial nerves II-XII are grossly intact. No evidence of any neurological deficits on exam. SKIN: Intact. Warm to touch. Good cap refill. PSYCHIATRIC: Normal affect and mood. EXTREMITIES: No edema. Good range of motion throughout. LAB FINDINGS: Show white count is 10, hemoglobin 10, hematocrit 33, and platelets of 341,000. Chemistry: Sodium 134, potassium 4.8, chloride 109, bicarb 24, anion gap of 15, BUN is 36, creatinine is 1.6, and glucose is 123. Magnesium 2.1. MICROBIOLOGY: None. IMAGING STUDIES: None. IMPRESSION 1. Acute kidney injury on chronic kidney disease, stage 3 secondary to prerenal azotemia. 2. Left kidney exophytic renal mass concerning for renal cell carcinoma. 3. Fall. 4. Medically debilitated. 5. Rib fractures. 6. Pneumonia. PLAN: At this time, I feel like that her creatinine is at baseline at stage 3. Her creatinine is now 1.6. Her other electrolytes are stable. There is no indication for any renal replacement therapy at this time. Her main issue is the renal cell carcinoma that was seen on imaging studies. I discussed this with the primary team yesterday, and they have already consulted with an oncologist. Likelihood the patient needing a biopsy in renal cell carcinoma according to the literature is high risk due to seeding. Will defer this to oncology. At this time, will continue to follow with you. Avoid nephrotoxic agents, NSAIDs, RAFAELA inhibitors, or ARBs. Continue with IV fluids. Job#: [id number] RENEA
[2018-01-22] MEDS: CLONIDINE HCL 0.1 MG TAB PO PRN (14:02)
[2018-01-22] MEDS: ENOXAPARIN SOD INJ 40 MG/0.4 ML SYR SC SCH (18:09)
[2018-01-22] MEDS: CEFEPIME HCL 1 GM VIAL IV SCH (18:09)
[2018-01-22] MEDS: SODIUM CHLORIDE 0.9% 1000ML 1,000 ML IV SCH (19:53)
--- NOTE | 2018-01-22 21:35 | Consultation ---
DATE OF CONSULTATION: January 22, 2018 ATTENDING DOCTOR: Dr. Luther Thank you Dr. Luther for this consultation. HISTORY: [id number] female with past medical history include multiple CVAs, history of chronic hypoxemia, history of multiple falls in past, admitted with one new episode of fall resulted with injury to left side of her chest. She was complaining of pain at admission. She was also complaining of coughing, fatigue, lethargic, and tiredness. She was diagnosed with pneumonia, started on antibiotic treatment. She also had CAT scan of chest, showed 3 rib fractures, 2 acute on the left. She also had T12 compression fracture. She is being followed with ID, staff cytotechnologist, and urologist. She had ultrasound and CAT scan of abdomen which showed right kidney mass located on superior pole, size around 3 cm. I am currently consulted for further management. Patient denies any recent history of hematuria, weight loss, or poor appetite. PAST MEDICAL HISTORY: History of chronic hypoxemia, CVA, history of multiple falls, tremors. ALLERGIES: REVIEWED NURSING LIST. MEDICATIONS LIST: Reviewed. SOCIAL HISTORY: No current smoking, alcohol, or drugs. FAMILY HISTORY: Reviewed and noncontributory. REVIEW OF SYSTEMS: Twelve-point reviewed, as per HPI. PHYSICAL EXAMINATION: GENERAL: Alert, awake, communicative. HEENT: Normocephalic, atraumatic. Sclerae pale. Conjunctivae clear. NECK: Supple. CHEST: Decreased breath sounds on bases, otherwise clear to auscultation. CARDIOVASCULAR: Regular rate and rhythm. ABDOMEN: Soft. EXTREMITIES: No edema. LABS AND IMAGING: Reviewed. ASSESSMENT AND PLAN: Patient with history of multiple medical conditions. I am currently following for: Recently diagnosed right kidney mass. Computerized axial tomography scan did not show any surrounding lymphadenopathy. 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 RECOMMENDATION: Continue to follow with urologist. Patient will benefit with partial nephrectomy. Unlikely advanced stage considering the size of the tumor. Patient and family asked about possibility of stage 4 disease especially with presence of some questionable liver lesions. At that time, it is better to do PET CT for further evaluation, it could be done as outpatient. Do not recommend any kidney biopsy with high risk of bleeding. Will monitor patient closely. Thank you. Job#: [id number]
[2018-01-23] VITALS (7 sets, daily range): BP systolic 148–197; BP diastolic 65–93
[2018-01-23] MEDS: GUAIFENESIN 600 MG TAB PO SCH ×4 (00:24→23:35)
[2018-01-23] MEDS: ACETYLCYSTEINE 20% INHAL SOLN 30 ML VIAL INH SCH ×5 (03:20→23:38)
[2018-01-23] MEDS: LEVALBUTEROL HCL SOLN NEBU 0.63 MG/3 ML NEB INH SCH ×6 (03:20→22:18)
[2018-01-23] MEDS: IPRATROPIUM BROMIDE 0.02% 2.5 ML NEB NEB SCH ×6 (03:20→22:18)
[2018-01-23] MEDS: CLONIDINE HCL 0.1 MG TAB PO PRN (04:57)
[2018-01-23] MEDS: LEVOTHYROXINE SODIUM 50 MCG TAB PO SCH (06:00)
[2018-01-23 06:06] LABS: ANION GAP 12.5 mmol/L (8-16); CALCIUM 8.6 mg/dL (8.4-10.2); CREATININE, SERUM 1.34 mg/dL (0.57-1.11); MAGNESIUM 1.9 MG/DL (1.3-2.1); POTASSIUM 4.5 mmol/L (3.5-5.1)
[2018-01-23 06:27] LABS: CHOL/HDL RATIO 3.6 (3.0-3.6)
[2018-01-23 06:37] LABS: ALBUMIN 2.9 g/dL (3.5-5.0); BILIRUBIN,DIRECT 0.1 mg/dL (0.0-0.5)
[2018-01-23 06:51] LABS: BASOPHILS % 0.3 % (0.0-1.0); EOSINOPHILS % 0.3 % (0.0-6.0); HEMATOCRIT 32.7 % (34.2-44.1); LYMPHOCYTES # (AUTO) 1.6 (1.0-3.2); LYMPHOCYTES % 13.8 % (18.0-39.1); MEAN CORPUSCULAR HEMOGLOBIN 28.2 pg (28-32); MEAN CORPUSCULAR HGB CONC 30.6 g/dL (31-35); MEAN CORPUSCULAR VOLUME 92.4 fL (81-99); MONOCYTES # (AUTO) 0.9 (0.2-0.8); MONOCYTES % 7.7 % (4.4-11.3); NEUTROPHILS # (AUTO) 8.9 (2.1-6.9); NEUTROPHILS % 76.9 % (38.7-80.0); PLATELET COUNT 319 x10e3/uL (140-360); RED BLOOD COUNT 3.54 x10e6/uL (3.6-5.1); RED CELL DISTRIBUTION WIDTH 14.8 % (11.7-14.4)
[2018-01-23] MEDS: FAMOTIDINE 20 MG TAB PO SCH ×2 (07:30→18:50)
[2018-01-23] MEDS: PANTOPRAZOLE SOD 40 MG TABEC PO SCH (07:30)
[2018-01-23] MEDS: SODIUM CHLORIDE 0.9% 1000ML 1,000 ML IV SCH ×2 (08:35→22:00)
[2018-01-23] MEDS: AMIODARONE HCL 200 MG TAB PO SCH (09:00)
[2018-01-23] MEDS: METOPROLOL SUCCINATE 50 MG TAB XL PO SCH (09:00)
[2018-01-23] MEDS: GABAPENTIN 300 MG CAP PO SCH ×2 (09:00→18:50)
[2018-01-23] MEDS: VENLAFAXINE HCL 75 MG TAB PO SCH (09:00)
[2018-01-23] MEDS: NIFEDIPINE CR 30 MG TAB PO SCH (09:15)
[2018-01-23] MEDS ORDERED: CHOLESTYRAMINE 4 GM PACKET PO PRN (09:15)
--- NOTE | 2018-01-23 11:02 | Progress Note ---
DATE: January 23, 2018 SUBJECTIVE: Patient is doing well, sitting in a chair with no complaints. Primary team wants a CT abdomen and pelvis with IV contrast to evaluate the right renal mass. I had a long discussion with the patient and the daughter at bedside, and currently she has CKD stage 3 and due to the fact that they want a CT with IV contrast, I had told them the risks and benefits involved with the contrast study. They had agreed to go ahead and proceed with the procedure. Patient was prehydrated since last night and she will get post hydration of IV fluids. Otherwise, patient is doing well with no other complaints. PHYSICAL EXAMINATION: VITAL SIGNS: Temperature is 97.5, pulse 73, respiratory rate is 20, blood pressure currently is elevated 177/78, pulse ox is 95%. She is on 3 liters nasal cannula. GENERAL: Not in acute distress, alert and oriented x3, cooperative on examination. HEENT: Head: Normocephalic, atraumatic. Eyes: Pupils equal, round, and reactive to light bilaterally. Extraocular movements intact bilaterally. Throat: No evidence of any erythema or exudates in the posterior pharynx. Has poor dentition. NECK: Supple with good range of motion. PULMONARY: Clear to auscultation bilaterally. No wheezing, no rales, no rhonchi, no crackles appreciated. CARDIOVASCULAR: Positive S1 and S2. No murmurs, rubs, or gallops appreciated. ABDOMEN: Soft, nondistended, nontender to palpation. Bowel sounds are present. MUSCULOSKELETAL: Strength is 5/5 throughout. No evidence of any musculoskeletal deficit on examination. No weakness appreciated. NEUROLOGICAL: Cranial nerves II through XII are grossly intact. No evidence of any neurologic deficits on exam. SKIN: Intact. Warm to touch. Good cap refill. PSYCHIATRIC: Normal affect and mood. EXTREMITIES: No edema. Good range of motion throughout. LAB FINDINGS: Showed white count 11.5, hemoglobin 10, hematocrit is 33, platelets of 319,000. Chemistry: Sodium is 135, potassium 4.5, chloride 104, bicarb 23, anion gap of 12, BUN is 33, creatinine is 1.3, and glucose is 88. MICROBIOLOGY: None. IMAGING STUDIES: There is a CT abdomen and pelvis with IV contrast pending for this morning. IMPRESSION: 1. Acute kidney injury on chronic kidney disease, stage 3. Likely had a component of acute tubular necrosis, now improved. 2. Left kidney exophytic renal mass concerning for renal cell carcinoma. 3. Mechanical fall. 4. Medically debilitated. 5. Rib fractures. 6. Pneumonia. 7. Hypertension. PLAN: At this time, primary team wants a CT abdomen and pelvis with IV contrast. I discussed the risks and benefits with the patient and the patient's daughter in relation to contrast exposure which can potentially renal failure, but at this time, they have agreed to go ahead and proceed with this particular study. Since last night, the patient has been on IV fluids prehydrated and I will go ahead and get the CT with IV contrast study and will continue with post hydration as well. It has been studied that normal saline hydration has been effective over other measures like bicarb drip and Mucomyst. Will continue to follow and get a.m. labs. Avoid nephrotoxic agents like NSAIDs, RAFAELA inhibitors, or ARBs. We will continue with IV fluids and follow with the CT scan findings. Job#: [id number]
[2018-01-23] MEDS: DIGOXIN 0.125 MG TAB PO SCH (13:04)
--- NOTE | 2018-01-23 14:27 | Diagnostic Imaging Report ---
EXAM: CT Abdomen WITH and WITHOUT contrast INDICATION: Abdominal mass COMPARISON: 01/20/2018 CT TECHNIQUE: The Abdomen was scanned utilizing a multidetector helical scanner after administration of IV contrast. Coronal and sagittal reformations were obtained. Renal mass protocol. IV CONTRAST: See technologist worksheet COMPLICATIONS: None RADIATION DOSE: Total DLP: 701 mGy*cm Estimated effective dose: (DLP x 0.015 x size factor) mSv CTDIvol has been reviewed. It is below the limits set by the Radiation Protocol Committee (RPC). FINDINGS: Lung Bases: Predominantly enhancing areas of consolidation in the lung bases. Moderate aortic vascular calcifications. Kidneys and Ureters: Evaluation of kidneys moderately limited due to extensive spray artifact from spinal hardware. 32 mm round lesion lateral right mid kidney with precontrast Hounsfield units 45, arterial 40, venous 58. 19 mm cystic lesion inferior right kidney with precontrast Hounsfield units 16, arterial Hounsfield units 12, and venous Hounsfield units 28. Other To small to characterize hypodensities present right kidney. 16 mm exophytic cystic lesion superior left kidney with precontrast Hounsfield units 25, arterial 22, venous 25. 13 mm cystic lesion inferior lateral left kidney, not well seen enough on precontrast to measure. Arterial 9 and venous 34 Hounsfield units. Other smaller hypodense and hyperdense cyst present left kidney. Other Solid Organs: Splenic and hepatic granulomata. Minimal nodularity adrenal glands. Pancreas unremarkable. Upper GI Tract: Decompressed stomach limits evaluation. No small bowel obstructive changes. Vascularity: Advanced aortic vascular calcifications. Ectasia 27 mm. Lymph Nodes: No suspicious adenopathy. Other: No free fluid or free air. Bones: Thoracic compression deformity/spinal hardware, stable. IMPRESSION: 1. Bilateral hypodense and hyperdense cystic lesions of the kidneys. While there is questionable bilateral lesion enhancement as detailed above, these values are felt to be very unreliable given significant spray artifact from spinal hardware. Close follow-up with renal ultrasound or renal mass MRI recommended. 2. Enhancing areas of consolidation in the lung bases suggest atelectasis. Signed by: Dr. Arthur Johnson MD on 01/23/2018 2:23 PM
[2018-01-23] MEDS ORDERED: IOPAMIDOL 370 MG/ML 200 ML INFUS..BTL INJ ONE ×2 (17:46→20:14)
[2018-01-23] MEDS ORDERED: SODIUM CHLORIDE 0.9% 50ML 0 ML ONE (17:46)
[2018-01-23] MEDS: CEFEPIME HCL 1 GM VIAL IV SCH (18:50)
[2018-01-23] MEDS ORDERED: SODIUM CHLORIDE 0.9% 50ML 50 ML ONE (20:14)
[2018-01-23] MEDS: MELATONIN 3 MG TAB PO PRN (23:35)
[2018-01-24 00:52] VITALS: BP 150/70
[2018-01-24] MEDS: IPRATROPIUM BROMIDE 0.02% 2.5 ML NEB NEB SCH ×4 (03:00→15:00)
[2018-01-24] MEDS: LEVALBUTEROL HCL SOLN NEBU 0.63 MG/3 ML NEB INH SCH ×4 (03:00→15:00)
[2018-01-24 04:00] LABS: BASOPHILS # (AUTO) 0.1 (0.0-0.1); BASOPHILS % 0.4 % (0.0-1.0); EOSINOPHILS # (AUTO) 0.1 (0.0-0.4); EOSINOPHILS % 1.2 % (0.0-6.0); HEMATOCRIT 30.5 % (34.2-44.1); HEMOGLOBIN 9.4 g/dL (12.0-16.0); LYMPHOCYTES # (AUTO) 1.9 (1.0-3.2); LYMPHOCYTES % 16.2 % (18.0-39.1); MEAN CORPUSCULAR HEMOGLOBIN 28.2 pg (28-32); MEAN CORPUSCULAR HGB CONC 30.8 g/dL (31-35); MEAN CORPUSCULAR VOLUME 91.6 fL (81-99); MONOCYTES # (AUTO) 1.1 (0.2-0.8); MONOCYTES % 9.3 % (4.4-11.3); NEUTROPHILS # (AUTO) 8.4 (2.1-6.9); PLATELET COUNT 314 x10e3/uL (140-360); RED BLOOD COUNT 3.33 x10e6/uL (3.6-5.1); RED CELL DISTRIBUTION WIDTH 14.7 % (11.7-14.4)
[2018-01-24] MEDS: HYDROCODONE/APAP 5MG-325MG TAB PO PRN ×2 (04:03→10:13)
[2018-01-24 04:15] LABS: CALCIUM 8.6 mg/dL (8.4-10.2); CREATININE, SERUM 1.31 mg/dL (0.57-1.11); MAGNESIUM 1.8 MG/DL (1.3-2.1)
[2018-01-24] MEDS: LEVOTHYROXINE SODIUM 50 MCG TAB PO SCH (05:43)
[2018-01-24] MEDS: GUAIFENESIN 600 MG TAB PO SCH ×2 (05:43→11:57)
[2018-01-24 06:02] VITALS: BP 146/65
[2018-01-24] MEDS: ACETYLCYSTEINE 20% INHAL SOLN 30 ML VIAL INH SCH ×2 (06:55→10:31)
[2018-01-24] MEDS: PANTOPRAZOLE SOD 40 MG TABEC PO SCH (07:55)
[2018-01-24] MEDS: FAMOTIDINE 20 MG TAB PO SCH (07:55)
[2018-01-24 07:59] VITALS: BP 167/73
--- NOTE | 2018-01-24 07:59 | Consultation ---
DATE OF CONSULTATION: January 21, 2018 UROLOGY CONSULTATION CONSULTATION CALLED BY: Dr. Luther CHIEF UROLOGIC COMPLAINT AND REASON FOR CONSULTATION: Renal mass. Hematuria. HISTORY OF PRESENT ILLNESS: Ms. Myrick is an 87-year-old female patient admitted to the hospital status post fall. Denied dysuria. Denied gross hematuria. PAST MEDICAL HISTORY: Notable for hypertension, severe arthritis, renal insufficiency stage 3. MEDICATIONS: Please see MAR. ALLERGIES: PENICILLIN, SULFA, PROPOXYPHENE, STREPTOMYCIN. SOCIAL HISTORY: No smoking or drinking. FAMILY HISTORY: Denied urologic stones or malignancies. REVIEW OF SYSTEMS: Noncontributory other than problems mentioned above for 12 organ systems. PHYSICAL EXAMINATION GENERAL: Elderly female in no acute distress currently. VITALS: She is afebrile with stable vital signs. HEENT: Sclerae are anicteric. NECK: Supple. BACK: Without costovertebral tenderness bilaterally. ABDOMEN: Soft. It is nontender. It is nondistended. No palpable masses. No palpable hernias. No palpable inguinal adenopathy. : Normal female external genitalia. EXTREMITIES: Without edema. NEUROLOGICAL: Moves extremities. PSYCH: Mood appropriate. SKIN: Intact. Normal color. PERTINENT LABORATORY DATA: CT scan is revealing bibasilar atelectasis. Bilateral carotid disease. Calcifications of the thoracoabdominal aorta including mitral valve annular calcifications. Hyperdense cysts. No definite mass seen. L2-4 severe stenosis and degenerative joint disease. A renal ultrasound revealed a 4.5-cm liver lesion, a right 3.1 x 2.5 x 2.0 exophytic lesion, several cysts approximately 1.5 cm on the right side as well as 1.6-cm and 1-cm cysts on the left side. Hemoglobin 9, hematocrit 29, platelet count 319,000, white cell count 8000. Sodium 133, potassium 4.5, chloride 99, bicarb 21, BUN 35, creatinine 1.53, glucose 91. Urinalysis showed 11-20 whites and greater than 50 reds. IMPRESSION 1. Renal mass. 2. Renal cysts. 3. Urinary tract infection. 4. Microscopic hematuria. 5. Urinary incontinence. 6. Urinary retention. 7. Chronic renal failure. PLAN: The patient would benefit from hydration and treatment of the urinary tract infection. At her age, she would be a poor candidate for a nephrectomy. However, would recommend a CT scan with and without contrast with renal mass protocol with a nephrology's input to minimize risk of further renal failure. Would not perform a biopsy. The patient's microscopic hematuria will need elective cystoscopy should they so wish. Renal cysts require surveillance. Thank you for allowing us to participate in the care of this patient. We will follow along with you. Job#: [id number] cc:VIDYA LUTHER MD
[2018-01-24] MEDS: NIFEDIPINE CR 30 MG TAB PO SCH (08:43)
[2018-01-24] MEDS: GABAPENTIN 300 MG CAP PO SCH (08:43)
[2018-01-24] MEDS: AMIODARONE HCL 200 MG TAB PO SCH (08:43)
[2018-01-24] MEDS: DIGOXIN 0.125 MG TAB PO SCH (08:43)
[2018-01-24] MEDS: VENLAFAXINE HCL 75 MG TAB PO SCH (08:43)
[2018-01-24] MEDS: METOPROLOL SUCCINATE 50 MG TAB XL PO SCH (08:43)
[2018-01-24] MEDS ORDERED: METHYLPREDNISOLONE SOD SUCC 40 MG/ML VIAL IV SCH (09:00)
--- NOTE | 2018-01-24 09:37 | Progress Note ---
DATE: January 24, 2018 Patient was seen and examined today. She appeared comfortable. No worsening events noted. PHYSICAL EXAMINATION GENERAL: Alert, awake and communicative. HEENT: Normocephalic and atraumatic. Sclerae pink. Conjunctivae clear. NECK: Supple. CHEST: Decreased breath sounds at the bases. ABDOMEN: Soft. EXTREMITIES: No edema. LABS AND IMAGING: Reviewed. ASSESSMENT AND PLAN: The patient with a history of multiple medical conditions, including recently diagnosed renal mass. She also has normocytic anemia. The patient was followed with urologist. So far, no indication of any biopsy or surgical resection considering her age. Clinical condition is stable. RECOMMENDATIONS: Continue to follow urologist. The patient will benefit with partial nephrectomy based on her clinical condition. Will monitor the patient closely. PEG feedings can help for further management. Normocytic anemia, multifactorial. Recommendation is workup. Will continue remaining care. Will follow the patient closely. Job#: [id number] RENEA
[2018-01-24] MEDS ORDERED: ALPRAZOLAM0.25 MG PO (09:38)
[2018-01-24] MEDS ORDERED: SYNTHROID50 MCG PO (09:38)
[2018-01-24] MEDS ORDERED: CATAPRES0.1 MG PO (09:38)
[2018-01-24] MEDS ORDERED: MUCINEX600 MG PO (09:38)
[2018-01-24] MEDS ORDERED: NIFEDIPINE ER30 M1 PO (09:38)
[2018-01-24 10:41] VITALS: BP 167/73
[2018-01-24 11:52] VITALS: BP 191/79
--- NOTE | 2018-01-24 11:59 | Progress Note ---
DATE: January 24, 2018 NEPHROLOGY PROGRESS NOTE SUBJECTIVE: The patient is doing well today with no complaints. She was sitting in the bed with no other issues. I have discussed overall plan of care with the daughter at bedside. She needs to follow up with oncology as an outpatient. OBJECTIVE VITAL SIGNS: Temperature 98, pulse 66, respiratory rate 17, blood pressure 167/73, pulse ox 95% on room air. GENERAL: Not in acute distress. Alert and oriented times 3. Cooperative on examination. HEENT: Head is normocephalic and atraumatic. Eyes: Pupils equal, round and reactive to light bilaterally. Extraocular movements intact bilaterally. NECK: Supple. Good range of motion. Throat with no evidence of any erythema or exudates in the posterior pharynx. Has poor dentition. PULMONARY: Clear to auscultation bilaterally. No wheezing. No rales. No rhonchi. No crackles appreciated. CARDIOVASCULAR: Positive S1 and S2. No murmurs, rubs or gallops appreciated. ABDOMEN: Soft, nondistended and nontender to palpation. Bowel sounds present. MUSCULOSKELETAL: Strength is 5/5 throughout. No evidence of any muscle deficit on examination. SKIN: Intact. Warm to touch. Good cap refill. PSYCHIATRIC: Normal affect and mood. EXTREMITIES: No edema. Good range of motion throughout. LAB FINDINGS: Show a white count of 11.6, hemoglobin 9.4, hematocrit 31, and platelets of 314,000. Chemistry: Sodium 133, potassium 4, chloride 104, bicarb 22, anion gap of 11, BUN is 27, creatinine 1.3, glucose is 94. IMAGING STUDIES: CT of the abdomen and pelvis with IV contrast shows bilateral hypodense and hyperdense cystic lesions of the kidneys. While there is questionable bilateral degenerative enhancement as detailed above, these values are felt to be unreliable given significant artifact from the spinal hardware. They recommend ultrasound and MRI needed. IMPRESSION 1. Acute kidney injury on chronic kidney disease, stage 3. 2. Left kidney exophytic renal mass concerning for renal cell carcinoma. 3. Mechanical fall. 4. Medically debilitated. 5. Rib fracture. 6. Pneumonia. 7. Hypertension. PLAN: At this time, I read urology's note. She is likely a poor surgical candidate due to her age. I did review the CT with IV contrast of the abdomen and pelvis. It essentially was inconclusive in which they recommend MRI. The patient cannot have an MRI due to hardware in the past. At this time, the family was advised to follow up with oncology. They will get an outpatient PET scan. From there, they will decide what is the next course of action. From a renal standpoint, her creatinine today was 1.3, much improved compared to admission. Likely, the patient had developed some component of ATN, but now improved. She has been pre and post hydrated from the IV contrast. Her creatinine is much improved now. The patient has no other complaints. She is urinating well. At this time, continue same plan of care. The patient likely will be discharged later today. Job#: [id number] RENEA
[2018-01-24] MEDS: CLONIDINE HCL 0.1 MG TAB PO PRN (12:05)
[2018-01-24] MEDS ORDERED: CEPHALEXIN 500 MG CAP PO ONE (12:15)
[2018-01-24] MEDS ORDERED: ALTERA NEBULIZ1 EACH (13:26)
[2018-01-24] MEDS ORDERED: IPRATROPIU0.2 MG/1 M NEB (13:27)
[2018-01-24] MEDS ORDERED: PREDNISONE20 MG PO (13:27)
--- NOTE | 2018-01-24 19:12 | Discharge Summary ---
ADMITTING DIAGNOSES 1. Pneumonia. 2. Atrial fibrillation. 3. Hypertension. 4. Anxiety. 5. Hyponatremia. 6. Acute kidney injury versus chronic kidney disease. 7. Anemia. 8. Continue. 9. Urinary tract infection. DISCHARGE DIAGNOSES 1. Pneumonia. 2. Atrial fibrillation. 3. Hypertension. 4. Anxiety. 5. Hyponatremia. 6. Acute kidney injury versus chronic kidney disease. 7. Anemia. 8. Continue. 9. Urinary tract infection. 10. 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 HISTORY: The patient has a history of hypertension, hyperlipidemia, CVA, AFib, CAD, anxiety, GERD, bronchitis, neuropathy. Surgical history of back surgery times 4, hemorrhoidectomy, hysterectomy, times 2, two bladder suspensions, appendectomy, tonsillectomy and abdominal hernia repair. HOSPITAL COURSE: This 87-year-old female complains of shortness of breath and productive cough that began a couple of days ago. She started having respiratory distress at home, so her grandson brought her in. In the ER, her SpO2 was around 78%. She denies nausea, vomiting, diarrhea and fever. On admission, the patient was placed on CPAP and weaned off the next day. She was started on Rocephin, Zithromax, Mucinex, IV steroids, nebs, O2. Pulmonary was consulted. The antibiotics also covered her UTI. The patient remained in normal sinus rhythm throughout the hospitalization on amiodarone, metoprolol and digoxin. On admission, her creatinine was 2.01. On the day of discharge, her creatinine was 1.31. On admission, the patient had a chest x-ray that showed bibasilar atelectasis, increased on the left, which could represent superimposed pneumonia. CT of the chest showed acute left posterior 10th and 11th rib fractures and subacute-appearing mild compression fracture of the T12 endplate with approximately 20% loss of vertebral body height. The patient had a fall at home about a week or 2 prior to admission. She went to the hospital, and they told her her ribs were just bruised. She was given pain medicine and sent home. Because of continued abdominal pain, the patient had an ultrasound of the abdomen that showed mild hepatomegaly; an 8.7-cm, mild, heterogeneous, hyperechoic, somewhat wedge-shaped area in the anterior right hepatic lobe that may represent focal fatty infiltration rather than a true mass; a 3.1-cm solid mass in the superior pole of the right kidney suspicious for RCC; bilateral simple-appearing renal cysts. The patient was unable to have an MRI due to metallic hardware in the upper lumbar spine. Oncology, urology and nephrology were consulted at that point. Per hematology, the patient will need a PET scan as outpatient, as she cannot have an MRI. Nephrology said he could not add anything to it because there is no way to do an MRI, and a biopsy was not an option. The patient's pneumonia continued to improve through the hospitalization very slowly, but she felt much better at the time of discharge. Per ID, the patient was switched from Zithromax and Rocephin to cefepime for about the last 4 days of hospitalization. The patient will discharge home with 10 more days of Keflex per ID with nebulizer and neb treatments per pulmonology. She will resume her home medications and will be given a script for Mucinex pain medicine for the broken ribs and nifedipine to help control her blood pressure a little bit more. The patient will discharge home with family. She lives with her grandson and has all the DME that she needs at home. The patient and the family understand the discharge instructions and agree to the plan. The patient will also be sent with physical therapy at home. Dictated by: Ghada Avalos NP Job#: [id number]
== END 2018-01-24 15:24 | disposition home health service (06) | DRG 193 ==
LOC: ER 21:18 → ERHOLD 23:38 → IMCU 01-16 00:06 → MED/SURG2 01-22 14:48
PROVIDERS: ADMIT Internal Medicine; ATTEND Internal Medicine
DX: J18.9 Pneumonia, unspecified organism (principal); J96.01 Acute respiratory failure with hypoxia; S22.42XA Multiple fractures of ribs, left side, initial encounter for closed fracture; N17.9 Acute kidney failure, unspecified; N39.0 Urinary tract infection, site not specified; J44.0 Chronic obstructive pulmonary disease with (acute) lower respiratory infection; J44.1 Chronic obstructive pulmonary disease with (acute) exacerbation; M48.54XA Collapsed vertebra, not elsewhere classified, thoracic region, initial encounter for fracture; I48.91 Unspecified atrial fibrillation; Z79.01 Long term (current) use of anticoagulants; K59.00 Constipation, unspecified; G47.00 Insomnia, unspecified; B96.20 Unspecified Escherichia coli [E. coli] as the cause of diseases classified elsewhere; N28.89 Other specified disorders of kidney and ureter; K76.0 Fatty (change of) liver, not elsewhere classified; I12.9 Hypertensive chronic kidney disease with stage 1 through stage 4 chronic kidney disease, or unspecified chronic kidney disease; N18.3 Chronic kidney disease, stage 3 (moderate); R53.81 Other malaise; W19.XXXA Unspecified fall, initial encounter; R32 Unspecified urinary incontinence; R33.9 Retention of urine, unspecified; Z66 Do not resuscitate; K21.9 Gastro-esophageal reflux disease without esophagitis; D63.1 Anemia in chronic kidney disease; I25.10 Atherosclerotic heart disease of native coronary artery without angina pectoris; Z86.73 Personal history of transient ischemic attack (TIA), and cerebral infarction without residual deficits; Z88.2 Allergy status to sulfonamides; Z88.0 Allergy status to penicillin
CPT/HCPCS: 36415; 36600; 51700; 71045; 71250; 74150; 74170; 76700; 80048; 80053; 80061; 80076; 80162; 81001; 82270; 82550; 82553; 82607; 82728; 82746; 82805; 82948; 83540; 83605; 83735; 83880; 84443; 84466; 84484; 85025; 85610; 85730; 87040; 87070; 87086; 87186; 87205; 87493; 93005; 93306; 94640; 94660; 94667; 96361; 97139; 99285; J0360; J0456; J0692; J0696; J1650; J1940; J2405; J2920; J2930; J7030; J7042; Q9967

== ENCOUNTER → 2018-02-24 | Outpatient (CLI) | payer MEDICARE, BC ==
[~2018-02-24] MED LIST: ALPRAZOLAM0.25 MG PO; ALTERA NEBULIZ1 EACH; AMIODARONE HCL200 MG PO; CATAPRES0.1 MG PO; DIGOXIN125 MCG PO; GABAPENTIN300 MG PO; HYDROCODON-ACE1 EA11 PO; IPRATROPIU0.2 MG/1 M NEB; MUCINEX600 MG PO; NIFEDIPINE ER30 M1 PO; OMEPRAZOLE40 MG PO; PREDNISONE20 MG PO; PROAIR HFA INH8.5 GM INH; SYMBICORT 16010.2 GM INH; SYNTHROID50 MCG PO; TOPROL XL50 MG PO; VENLAFAXINE HCL75 MG PO
--- NOTE | 2018-02-24 16:37 | Diagnostic Imaging Report ---
Radiographs of the cervical spine - 5 views with bilateral obliques HISTORY: Pain COMPARISON: None available. FINDINGS: Bones: No acute displaced fracture. Reversal of the normal cervical lordosis at the C5/6 level. Joints: Scattered degenerative change. No osseous erosion. This is most pronounced from C4/5 through C6/7. There is associated uncovertebral hypertrophy and facet arthrosis with mild bilateral neural foraminal narrowing at these levels. Soft tissues: The soft tissues appear unremarkable. IMPRESSION: Scattered degenerative change. No osseous erosion. This is most pronounced from C4/5 through C6/7. There is associated uncovertebral hypertrophy and facet arthrosis with mild bilateral neural foraminal narrowing at these levels. MRI may be of benefit. Signed by: Dr. Raul Pacheco M.D. on 02/24/2018 4:32 PM
== END ==
LOC: RAD 15:41
DX: M54.2 Cervicalgia (principal)
CPT/HCPCS: 72050

== ENCOUNTER → 2018-03-10 | Outpatient (CLI) | payer MEDICARE, BC ==
--- NOTE | 2018-03-11 07:24 | Diagnostic Imaging Report ---
Exam: Cervical spine MRI without IV contrast History: Neck pain Comparison studies: Cervical spine x-ray 02/24/2018. Technique: Sagittal T1, T2 and IR, axial T2 and axial gradient echo Intravenous contrast: None Findings: Several pulse sequences are limited by artifacts related to patient motion. In spite of this limitation: Alignment: Mild cervical kyphotic curvature. Approximately 3 mm anterolisthesis of T1 on T2. Cervicomedullary junction: No abnormalities. Patent foramen magnum. Soft tissues: No T2 hyperintense inflammatory changes. Spinal cord: Normal in size and grossly normal in signal from the foramen magnum to T1. Vertebrae: No fractures, infection or neoplasm. Degenerative changes: C2-C3: Mildly degenerated disc. Asymmetric right disc ossify complex, uncovertebral arthrosis and facet arthrosis with mild right foraminal stenosis. No significant canal or left foraminal stenosis. C3-C4: Moderately degenerated disc. Disc ossify,, thickened ligamentum flavum, uncovertebral arthrosis and facet arthrosis with moderate canal stenosis, severe left and moderate right foraminal stenosis. C4-C5: Moderately degenerated disc. Disc osteophyte complex, uncovertebral arthrosis and facet arthrosis with moderate canal stenosis and moderate right and mild left foraminal stenosis. C5-C6: Moderately degenerated disc. Disc osteophyte complex, thickened ligamentum flavum, uncovertebral arthrosis with moderate canal stenosis and mild left foraminal stenosis. No significant right foraminal stenosis. C6-C7: Moderately degenerated disc. Disc osteophyte complex, thickened ligamenta flava, uncovertebral arthrosis with moderate canal stenosis, severe left foraminal stenosis and moderate right foraminal stenosis. Incidental findings: Enlarged heterogeneous multinodular thyroid gland. Circumscribed T2 hyperintense lesion along the medial margin of the left carotid space, possibly lymph node. Findings may be further evaluated by neck CT with IV contrast. C7-T1: Patent canal and foramina. IMPRESSION: 1. Moderate degenerative changes with moderately degenerated disks and moderate canal stenosis from C3 to C7 and multilevel uncovertebral and facet arthrosis. 2. Multilevel degenerative foraminal stenosis (severe left and moderate right at C3-C4, moderate right at C4-C5 and severe left at C6-C7). 3. No gross cord signal abnormalities. 4. Incidental findings as described. Signed by: Dr. Km Wong M.D. on 03/11/2018 7:21 AM
== END ==
LOC: MRI 13:27
DX: M54.2 Cervicalgia (principal)
CPT/HCPCS: 72141